=== PATIENT | female | born 1980 | race Caucasian/White ===

== ENCOUNTER 2020-03-17 06:21 | Day surgery (SDC) | payer OTHER ==
[2020-03-12 10:09] VITALS: BMI 22.8
[2020-03-17] MEDS ORDERED: EPINEPHrine/PF 1 MG/1 ML (1:1,000) AMPULE ONE (07:31)
[2020-03-17] MEDS ORDERED: BACITRACIN 15 GM TUBE TOPICAL OINTMENT ONE (07:32)
[2020-03-17] MEDS ORDERED: SODIUM CHLORIDE 0.9% P/F 10 ML VIAL IJ ONE (07:45)
[2020-03-17] MEDS ORDERED: BUPIVACAINE HCL/PF 0.25% (2.5MG/ML) 10 ML VIAL ONE (07:45)
[2020-03-17] MEDS ORDERED: BUPIVACAINE LIPOSOME/PF (EXPAREL) 266 MG/20 ML VIAL ONE (07:46)
[2020-03-17] MEDS ORDERED: MIDAZOLAM HCL 2 MG/2 ML SINGLE DOSE VIAL ONE (07:53)
[2020-03-17] MEDS ORDERED: PROPOFOL 20 ML ONE (07:56)
[2020-03-17] MEDS ORDERED: fentaNYL CITRATE 250 MCG/5 ML VIAL ONE (07:57)
[2020-03-17] MEDS ORDERED: ROCURONIUM BROMIDE 50 MG/5 ML SYRINGE ONE ×2 (07:57→09:55)
[2020-03-17] MEDS ORDERED: HEPARIN NA (PORCINE) 5,000 UNITS/ML 1ML VIAL ONE (08:46)
[2020-03-17] MEDS ORDERED: KETOROLAC TROMETHAMINE 30 MG/1 ML VIAL ONE (10:01)
[2020-03-17] MEDS ORDERED: DEXAMETHASONE SOD PHOSPHATE 4 MG/1 ML VIAL ONE (10:01)
[2020-03-17] MEDS ORDERED: ONDANSETRON 4 MG/2 ML VIAL ONE (10:01)
--- NOTE | 2020-03-17 11:11 | OP ---
DATE OF OPERATION: 03/17/2020 PREOPERATIVE DIAGNOSIS: Umbilical hernia. POSTOPERATIVE DIAGNOSIS: Umbilical hernia. PROCEDURE: Laparoscopic repair of umbilical hernia with mesh. SURGEON: Kevin Michael MD COMPLICATIONS: None. BLEEDING: Minimal. CONDITION: Patient tolerated procedure well. INDICATIONS: This is a 40-year-old female who is undergoing abdominoplasty and given the plan by Dr. Williamson to leave the alatna umbilicus in place during the procedure, he has asked us to perform a laparoscopic umbilical hernia repair to avoid ischemia to the umbilical stalk. So, we discussed the options with the patient and she has agreed to proceed. DESCRIPTION OF PROCEDURE: The patient was taken to the operating room and placed in the supine position. Dr. Williamson's markings for abdominoplasty were in place and we decided to place the incision within this area of excision in order to avoid extra scars. The procedure was begun with insufflation through a peritoneal left subcostal margin. Then a total of 3 ports were introduced utilizing Optiview trocar in the arc fashion in the lower abdomen within the elliptical plane of excision and the ports were placed under direct vision using Optiview access, and at this point with a 30-degree scope a flap was raised just below the umbilicus at the hernia defect using the LigaSure to open the peritoneal sac and this was dissected superiorly until it passed the umbilical hernia defect which was seen, which was relatively very small fascial defect to be approximately about less than a centimeter. At this point in time the preperitoneal sac was then reduced and removed and sent to Pathology and then a ProGrip mesh was measured to cover the defect. It was approximately 3 x 4 cm and it was unfolded and positioned to cover the defect with adequate margins, and then the peritoneum was reapproximated to cover the mesh to avoid any exposure to the peritoneal cavity using a 2-0 V-Loc suture in a running fashion. Once this was completed and desufflation of the peritoneal cavity was established, a final check for hemostasis and the procedure was turned over to Dr. Williamson for completion of his abdominoplasty. KEVNI MICHAEL M.D. [id number]
[2020-03-17] MEDS ORDERED: BUPIVACAINE HCL/PF 0.25% (2.5MG/ML) 10 ML VIAL IJ ONE (11:55)
[2020-03-17] MEDS ORDERED: BUPIVACAINE LIPOSOME/PF (EXPAREL) 266 MG/20 ML VIAL NR ONE (11:55)
[2020-03-17] MEDS ORDERED: ceFAZolin SODIUM 1 GM VIAL ONE ×2 (12:21)
[2020-03-17] MEDS ORDERED: NEOSTIGMINE METHYLSULFATE 0.5 MG/ML - 10 ML MDV ONE (13:54)
[2020-03-17] MEDS ORDERED: PROMETHAZINE HCL 25 MG/1 ML VIAL IVPB PRN (14:18)
[2020-03-17] MEDS ORDERED: ONDANSETRON 4 MG/2 ML VIAL IVPUSH PRN (14:18)
[2020-03-17] MEDS ORDERED: oxyCODONE HCL 5 MG TABLET PO PRN ×3 (14:18→14:25)
[2020-03-17] MEDS ORDERED: FAMOTIDINE 20 MG/50 ML IVPB 20 MG/50 ML MG IVPB ONE (14:19)
[2020-03-17] MEDS ORDERED: ONDANSETRON 4 MG/2 ML VIAL IVPB PRN ×2 (14:25→15:55)
--- NOTE | 2020-03-17 14:28 | OP ---
Operative Note - Note: Operative Date: 03/17/20 Pre-Operative Diagnosis: abdominal deformity Operation: abdominoplsty Post-Operative Diagnosis: Same as Pre-op Surgeon: Fareed Williamson Anesthesia: General Operative Report Dictated: Yes
[2020-03-17] MEDS ORDERED: LACTATED RINGERS SOLUTION 1,000 ML IV SCH ×2 (14:30→16:00)
[2020-03-17] MEDS ORDERED: FAMOTIDINE 20 MG PREMIXED IVPB IVPB ONE (14:30)
[2020-03-17] MEDS ORDERED: MORPHINE SULFATE 2 MG/ML VIAL IVPUSH PRN (15:55)
[2020-03-17] MEDS: oxyCODONE HCL 5 MG TABLET PO PRN (19:56)
[2020-03-17] MEDS: CEFAZOLIN 1 GM/D5W 1 GM/50 ML BAG IVPB SCH (20:35)
[2020-03-18] MEDS: CEFAZOLIN 1 GM/D5W 1 GM/50 ML BAG IVPB SCH ×2 (02:42→09:04)
[2020-03-18] MEDS: oxyCODONE HCL 5 MG TABLET PO PRN ×2 (04:44→09:03)
--- NOTE | 2020-03-18 07:27 | OP ---
DATE OF OPERATION: 03/17/2020 TITLE OF PROCEDURE: Abdominoplasty. PREOPERATIVE DIAGNOSIS: Abdominal deformity with diastasis recti. POSTOPERATIVE DIAGNOSIS: Abdominal deformity with diastasis recti. Patient also had a simultaneous umbilical hernia repair performed by Dr. Kevin Roy, that portion of the procedure to be dictated by Dr. Roy. The patient seen in the holding area. She is marked for an abdominoplasty. Patient is given the option of an umbilical float procedure lowering the umbilicus for which she is a candidate; however, the patient prefers to have the full abdominoplasty with umbilical translocation in order to maximize the tightness of the result. Patient additionally wants a segment of skin that is deformed from a previous supraumbilical piercing to be excised and it is explained to the patient that, given this request, it is certainly necessary to have a small vertical component of the incision just suprapubic in order to close without excess tension. She understands, agrees to proceed. Markings are made. Dr. Roy is present, evaluates the markings and agrees that his laparoscopic portals can be made within the skin resection pattern. It is discussed with the patient that no liposuction is required. She understands. All risks, benefits, and alternatives are discussed, understood, agreed to proceed. Patient is given 5000 units of subcutaneous heparin preoperatively. She is given a gram of Ancef preoperatively. VANDANA hose and sequential compression stockings are applied. She is brought to the operating room, placed in the supine position. She is positioned for appropriate flexion at the waist. All appropriate positioning aids are used for padding. After anesthesia is given, a Pedroza catheter is placed. She is prepped and draped in standard surgical fashion. A timeout is called. Patient, procedure, and incision site are verified. At this point, it should be noted that the initial positioning and draping is performed by Dr. Roy, and I scrubbed into the operation only after the completion of his umbilical hernia repair, which is done laparoscopically. At this point, an incision is made just inferior to the existing depressed section scar, and it is continued laterally on both sides along the infra pannicular crease. Laterally over the iliac crest, a superficial dissection is performed in order to protect the anterior lateral femoral cutaneous nerve. The fascia is identified and dissection is carried along the fascia until the 3 fascial defects created by the laparoscopic equipment are identified. They are each closed with a series of [id number] number 1 Prolene suture with the knots buried and protected with 2-0 Vicryl sutures. The dissection is then continued to the level of the umbilicus. At this point, the umbilicus is then circumcised and developed on a fibrofatty stalk with wide vascular support. Dissection is then continued along the fascia to the xiphoid process and the midline costal margins bilaterally. At this point, hemostasis is meticulously achieved. Midline plication is then performed in 2 separate layers, 1st with a series of interrupted buried [id number] number 1 Prolene sutures followed by a running, locking number 1 Prolene suture with all knots buried. Two lines of sutures are performed, both above and below the umbilicus. Adequate space is given for umbilical translocation. The umbilicus is pink and viable. The fascia is then injected with a total of 6 mL of the following mixture: 20 mL of Exparel, 20 mL of 0.25% Marcaine plain, and 20 mL of normal saline. This is given into the rectus abdominis muscles as well as the perimeter of the incisions. Patient is brought to a 30-degree flexed position. It is determined the amount of skin and fat that could be excised. This is marked, and an excision of the excess and fat was then performed with the umbilicus site of translocation is able to be determined that there is slightly excess fullness in the mid abdominal region; this is feathered with facelift scissors to create the desired abdominal contour. The hemostasis is then meticulously achieved. The wounds are copiously irrigated with normal saline. Size 10 flat VANESSA drains are power into the wound. The right drain is in the superior aspect of the wound; the left drain is in the lower aspect of the wound. Drains secured with 2-0 silk drain sutures. Skin is tailor tacked. The umbilicus is then sited. A Star Trek pattern is created over the umbilicus as well as the abdominoplasty flap. Umbilicus is then translocated to fill the defect with an inset with 4-0 nylon sutures at the apices of the pattern, and a series of interrupted buried deep dermal 4-0 Monocryl suture are used followed by a running subcuticular 4-0 Monocryl suture on each of the lateral limbs. The midline vertical component of the incision is then closed with a series of interrupted Dayna layer 2-0 Vicryl suture. The skin after having been tailor tack closed with donita is then closed with a series of interrupted 2-0 Vicryl buried superficial fascial system Dayna layer sutures followed by a series of interrupted buried deep dermal 3-0 Monocryl suture followed by a running mid dermal 3-0 Monocryl V-Loc suture. The vertical uptick is closed with a series of interrupted buried deep dermal 3-0 Monocryl suture followed by a running subcuticular 3-0 Monocryl suture. The drains are each brought out through lateral extent of the incision. It should be noted that prior to final closure, the suprapubic tissue is fixed to the abdominal wall with a series of interrupted 2-0 Vicryl sutures from the superficial fascial system to the deep fascial system in order to control the height of the scar. No excess tension is left on the closure. All the tissues appear pink and viable with no evidence of ischemia to any of the skin. Drains are placed to bulb suction, dressings were applied with bacitracin, Xeroform to the umbilicus. Steri- Strips, 4 x 4 gauze, ABD gauze, Hypafix tape and an abdominal binder applied. Patient awoken from anesthesia, transferred in a flexed position to her hospital bed, and uneventful extubation with no bucking is achieved. Patient having tolerated procedure well transferred to recovery without complication. Nel [id number] MTDD
[2020-03-18] MEDS ORDERED: HEPARIN NA (PORCINE) 5,000 UNITS/ML 1ML VIAL SQ SCH (08:00)
--- NOTE | 2020-03-18 09:19 | PN ---
Progress Note (short form) - Note Progress Note: POD 1 post abdominoplasty VSS AF Thin serosanguinous drainage from both VANESSA's Ambulating, receiving sq heparin no further NV, audrey PO, urinating adequately OK for discharge, IS demonstrated and will go home w patient. f/u 1 week jackelin, 2 weeks anupama
--- NOTE | 2020-03-18 10:26 | PN ---
Progress Note (short form) - Note Progress Note: Anesthesia post op S:Pt lying comfortably in bed Denies N/V O:moving lower extremities A/P: POD#1 abdominoplasty No apparent anesthesia complications Cont current pain regimen
[2020-03-18 10:55] VITALS: BP 110/56; PULSE 72; TEMP 98
--- NOTE | 2020-03-19 16:33 | PATH ---
Surgical Pathology Report Patient Name: SEPIDEH CARTER Med. Rec. #: [id number] /Age/Gender: 1980 (Age: 40) / F Account: [id number] Location: [facility] Taken: 03/17/2020 Received: 03/17/2020 Reported: 03/19/2020 Physicians: Fareed Williamson Specimen(s) Received A: HERNIA SAC CONTENT B: ABDOMINAL SKIN AND TISSUE Clinical History Umbilical hernia Final Diagnosis A. HERNIA SAC CONTENTS, EXCISION: MATURE ADIPOSE TISSUE AND FIBROUS TISSUE. B. ABDOMINAL SKIN AND TISSUE, ABDOMINOPLASTY: PORTION OF SKIN AND SUBJACENT SOFT TISSUE WITH NO GROSS LESIONS. GROSS EXAMINATION ONLY. Electronically Signed Gopal Tapia M.D. Gross Description A. Received in formalin labeled "hernia sac contents," is a 1.2 x 1.0 x 0.3 cm portion of yellow, lobulated adipose tissue. The specimen is submitted in toto in one cassette. B. Received in formalin labeled "abdominal skin and tissue," is a 478 g 4.0 x 15.0 x 3.0 cm aggregate of 2 posey, triangular, unremarkable portions of skin with underlying soft tissue. No lesions are identified. No sections are submitted, gross only. 03/18/2020 [facility]18[facility]
== END 2020-03-18 12:49 | disposition home or self-care (01) ==
LOC: FASU 06:21 → FM/S 15:55 → FASU 03-18 12:49
PROVIDERS: ATTEND Plastic Surgery
PROC: 0J080ZZ Alteration of Abdomen Subcutaneous Tissue and Fascia, Open Approach (ICD-10-PCS; principal; 2020-03-17 08:54)
PROC: 0WUF4JZ Supplement Abdominal Wall with Synthetic Substitute, Percutaneous Endoscopic Approach (ICD-10-PCS; 2020-03-17 08:54)
DX: M95.8 Other specified acquired deformities of musculoskeletal system (principal); M62.08 Separation of muscle (nontraumatic), other site; K42.9 Umbilical hernia without obstruction or gangrene
CPT/HCPCS: 81025; 88302-TC; 88304-TC; 94760; J1644